=== PATIENT | female | born 1935 | race Caucasian/White ===

== ENCOUNTER → 2019-03-24 | Outpatient (CLI) | payer OTHER, BC ==
[~2019-03-24] MED LIST: ASPIRIN EC81 M1 PO; CALCIUM PO; ELIQUIS2.5 MG PO; FISH OIL 1,0001 EAC5 PO; LEVOTHYROXIN0.125 M1 PO; PLAVIX 75 MG TA75 MG PO; TOPROL XL50 MG PO
== END ==
LOC: HYPER 08:00
DX: L89.623 Pressure ulcer of left heel, stage 3 (principal); S91.111D Laceration without foreign body of right great toe without damage to nail, subsequent encounter; I73.9 Peripheral vascular disease, unspecified; I25.10 Atherosclerotic heart disease of native coronary artery without angina pectoris; I10 Essential (primary) hypertension; I71.4 Abdominal aortic aneurysm, without rupture; E78.00 Pure hypercholesterolemia, unspecified; L84 Corns and callosities; E78.5 Hyperlipidemia, unspecified; F19.10 Other psychoactive substance abuse, uncomplicated; F17.200 Nicotine dependence, unspecified, uncomplicated; Z86.73 Personal history of transient ischemic attack (TIA), and cerebral infarction without residual deficits; X58.XXXD Exposure to other specified factors, subsequent encounter

== ENCOUNTER → 2019-04-04 | Outpatient (CLI) | payer OTHER, BC | LOC: HYPER 01:06 | DX: L89.613 Pressure ulcer of right heel, stage 3 (principal); I73.9 Peripheral vascular disease, unspecified; I25.10 Atherosclerotic heart disease of native coronary artery without angina pectoris; I10 Essential (primary) hypertension; I71.4 Abdominal aortic aneurysm, without rupture; E78.00 Pure hypercholesterolemia, unspecified; L84 Corns and callosities; E78.5 Hyperlipidemia, unspecified; F19.10 Other psychoactive substance abuse, uncomplicated; F17.200 Nicotine dependence, unspecified, uncomplicated; Z86.73 Personal history of transient ischemic attack (TIA), and cerebral infarction without residual deficits ==

== ENCOUNTER → 2019-04-18 | Outpatient (CLI) | payer OTHER, BC | LOC: HYPER 09:46 | DX: L89.613 Pressure ulcer of right heel, stage 3 (principal); I73.9 Peripheral vascular disease, unspecified; I25.10 Atherosclerotic heart disease of native coronary artery without angina pectoris; I10 Essential (primary) hypertension; E78.00 Pure hypercholesterolemia, unspecified; I71.4 Abdominal aortic aneurysm, without rupture; L84 Corns and callosities; E78.5 Hyperlipidemia, unspecified; F19.10 Other psychoactive substance abuse, uncomplicated; F17.200 Nicotine dependence, unspecified, uncomplicated; Z86.73 Personal history of transient ischemic attack (TIA), and cerebral infarction without residual deficits ==

== ENCOUNTER → 2019-05-09 | Outpatient (CLI) | payer OTHER, BC | LOC: HYPER 10:00 | DX: L89.613 Pressure ulcer of right heel, stage 3 (principal); L89.899 Pressure ulcer of other site, unspecified stage; I73.89 Other specified peripheral vascular diseases; L84 Corns and callosities; I25.10 Atherosclerotic heart disease of native coronary artery without angina pectoris; I71.4 Abdominal aortic aneurysm, without rupture; E78.00 Pure hypercholesterolemia, unspecified; E78.5 Hyperlipidemia, unspecified; I10 Essential (primary) hypertension; F17.290 Nicotine dependence, other tobacco product, uncomplicated; Z86.73 Personal history of transient ischemic attack (TIA), and cerebral infarction without residual deficits ==

== ENCOUNTER → 2019-05-16 | Outpatient (CLI) | payer OTHER, BC | LOC: HYPER 08:46 | DX: L89.613 Pressure ulcer of right heel, stage 3 (principal); L89.899 Pressure ulcer of other site, unspecified stage; L84 Corns and callosities; E78.5 Hyperlipidemia, unspecified; E78.00 Pure hypercholesterolemia, unspecified; I10 Essential (primary) hypertension; I25.10 Atherosclerotic heart disease of native coronary artery without angina pectoris; I73.9 Peripheral vascular disease, unspecified; I71.4 Abdominal aortic aneurysm, without rupture; F17.200 Nicotine dependence, unspecified, uncomplicated; Z86.73 Personal history of transient ischemic attack (TIA), and cerebral infarction without residual deficits ==

== ENCOUNTER → 2019-05-30 | Outpatient (CLI) | payer OTHER, BC | LOC: HYPER 08:08 | DX: L89.613 Pressure ulcer of right heel, stage 3 (principal); L89.899 Pressure ulcer of other site, unspecified stage; L84 Corns and callosities; I25.10 Atherosclerotic heart disease of native coronary artery without angina pectoris; I10 Essential (primary) hypertension; I73.9 Peripheral vascular disease, unspecified; I71.4 Abdominal aortic aneurysm, without rupture; E78.5 Hyperlipidemia, unspecified; E78.00 Pure hypercholesterolemia, unspecified; F17.200 Nicotine dependence, unspecified, uncomplicated; Z86.73 Personal history of transient ischemic attack (TIA), and cerebral infarction without residual deficits ==

== ENCOUNTER → 2019-06-13 | Outpatient (CLI) | payer OTHER, BC | LOC: HYPER 09:42 | DX: L89.613 Pressure ulcer of right heel, stage 3 (principal); L97.512 Non-pressure chronic ulcer of other part of right foot with fat layer exposed; I73.89 Other specified peripheral vascular diseases; L84 Corns and callosities; I25.10 Atherosclerotic heart disease of native coronary artery without angina pectoris; I10 Essential (primary) hypertension; I71.4 Abdominal aortic aneurysm, without rupture; E78.00 Pure hypercholesterolemia, unspecified; E78.5 Hyperlipidemia, unspecified; F17.200 Nicotine dependence, unspecified, uncomplicated; Z86.73 Personal history of transient ischemic attack (TIA), and cerebral infarction without residual deficits; Z79.82 Long term (current) use of aspirin; Z79.01 Long term (current) use of anticoagulants ==

== ENCOUNTER → 2019-06-27 | Outpatient (CLI) | payer OTHER, BC | LOC: HYPER 13:49 | DX: L89.613 Pressure ulcer of right heel, stage 3 (principal); L89.899 Pressure ulcer of other site, unspecified stage; L97.512 Non-pressure chronic ulcer of other part of right foot with fat layer exposed; L84 Corns and callosities; I25.10 Atherosclerotic heart disease of native coronary artery without angina pectoris; I10 Essential (primary) hypertension; I71.4 Abdominal aortic aneurysm, without rupture; E78.00 Pure hypercholesterolemia, unspecified; I73.9 Peripheral vascular disease, unspecified; E78.5 Hyperlipidemia, unspecified; F17.290 Nicotine dependence, other tobacco product, uncomplicated; Z86.73 Personal history of transient ischemic attack (TIA), and cerebral infarction without residual deficits; Z79.82 Long term (current) use of aspirin; Z79.01 Long term (current) use of anticoagulants ==

== ENCOUNTER → 2019-07-11 | Outpatient (CLI) | payer OTHER, BC | LOC: HYPER 13:34 | DX: L89.613 Pressure ulcer of right heel, stage 3 (principal); I73.89 Other specified peripheral vascular diseases; I25.10 Atherosclerotic heart disease of native coronary artery without angina pectoris; I10 Essential (primary) hypertension; I71.4 Abdominal aortic aneurysm, without rupture; E78.00 Pure hypercholesterolemia, unspecified; L84 Corns and callosities; E78.5 Hyperlipidemia, unspecified; F17.290 Nicotine dependence, other tobacco product, uncomplicated; Z86.73 Personal history of transient ischemic attack (TIA), and cerebral infarction without residual deficits; Z79.82 Long term (current) use of aspirin ==

== ENCOUNTER → 2019-07-18 | Outpatient (CLI) | payer OTHER, BC | LOC: HYPER 13:47 | DX: L89.613 Pressure ulcer of right heel, stage 3 (principal); L97.512 Non-pressure chronic ulcer of other part of right foot with fat layer exposed; I73.89 Other specified peripheral vascular diseases; L84 Corns and callosities; I25.10 Atherosclerotic heart disease of native coronary artery without angina pectoris; I71.4 Abdominal aortic aneurysm, without rupture; E78.00 Pure hypercholesterolemia, unspecified; E78.5 Hyperlipidemia, unspecified; I10 Essential (primary) hypertension; F17.200 Nicotine dependence, unspecified, uncomplicated; Z79.01 Long term (current) use of anticoagulants; Z79.82 Long term (current) use of aspirin ==

== ENCOUNTER → 2019-08-08 | Outpatient (CLI) | payer OTHER, BC | LOC: HYPER 09:58 | DX: L89.613 Pressure ulcer of right heel, stage 3 (principal); L97.512 Non-pressure chronic ulcer of other part of right foot with fat layer exposed; L84 Corns and callosities; E78.5 Hyperlipidemia, unspecified; E78.00 Pure hypercholesterolemia, unspecified; I73.9 Peripheral vascular disease, unspecified; I25.10 Atherosclerotic heart disease of native coronary artery without angina pectoris; I10 Essential (primary) hypertension; I71.4 Abdominal aortic aneurysm, without rupture; F17.200 Nicotine dependence, unspecified, uncomplicated; Z86.73 Personal history of transient ischemic attack (TIA), and cerebral infarction without residual deficits ==

== ENCOUNTER → 2019-08-28 | Outpatient (CLI) | payer OTHER, BC | LOC: HYPER 13:12 | DX: L89.613 Pressure ulcer of right heel, stage 3 (principal); L89.312 Pressure ulcer of right buttock, stage 2; L97.512 Non-pressure chronic ulcer of other part of right foot with fat layer exposed; I73.9 Peripheral vascular disease, unspecified; F17.200 Nicotine dependence, unspecified, uncomplicated; I25.10 Atherosclerotic heart disease of native coronary artery without angina pectoris; I10 Essential (primary) hypertension; I71.4 Abdominal aortic aneurysm, without rupture; E78.00 Pure hypercholesterolemia, unspecified; L84 Corns and callosities; E78.5 Hyperlipidemia, unspecified; Z86.73 Personal history of transient ischemic attack (TIA), and cerebral infarction without residual deficits; Z79.01 Long term (current) use of anticoagulants; Z79.82 Long term (current) use of aspirin ==

== ENCOUNTER → 2019-09-11 | Outpatient (CLI) | payer OTHER, BC | LOC: HYPER 09:52 | DX: L89.613 Pressure ulcer of right heel, stage 3 (principal); L89.313 Pressure ulcer of right buttock, stage 3; L89.153 Pressure ulcer of sacral region, stage 3; L97.512 Non-pressure chronic ulcer of other part of right foot with fat layer exposed; I73.89 Other specified peripheral vascular diseases; L84 Corns and callosities; R21 Rash and other nonspecific skin eruption; I25.10 Atherosclerotic heart disease of native coronary artery without angina pectoris; I10 Essential (primary) hypertension; I71.4 Abdominal aortic aneurysm, without rupture; E78.00 Pure hypercholesterolemia, unspecified; E78.5 Hyperlipidemia, unspecified; F17.200 Nicotine dependence, unspecified, uncomplicated; Z86.73 Personal history of transient ischemic attack (TIA), and cerebral infarction without residual deficits; Z79.82 Long term (current) use of aspirin ==

== ENCOUNTER → 2019-10-02 | Outpatient (CLI) | payer OTHER, BC | LOC: HYPER 09:32 | DX: L89.613 Pressure ulcer of right heel, stage 3 (principal); L89.153 Pressure ulcer of sacral region, stage 3; L89.312 Pressure ulcer of right buttock, stage 2; L97.412 Non-pressure chronic ulcer of right heel and midfoot with fat layer exposed; L97.512 Non-pressure chronic ulcer of other part of right foot with fat layer exposed; L97.411 Non-pressure chronic ulcer of right heel and midfoot limited to breakdown of skin; S91.312A Laceration without foreign body, left foot, initial encounter; L84 Corns and callosities; E78.00 Pure hypercholesterolemia, unspecified; E78.5 Hyperlipidemia, unspecified; I71.4 Abdominal aortic aneurysm, without rupture; I10 Essential (primary) hypertension; I25.10 Atherosclerotic heart disease of native coronary artery without angina pectoris; I73.9 Peripheral vascular disease, unspecified; F17.200 Nicotine dependence, unspecified, uncomplicated; Z86.73 Personal history of transient ischemic attack (TIA), and cerebral infarction without residual deficits; X58.XXXA Exposure to other specified factors, initial encounter; Y93.89 Activity, other specified; Y92.89 Other specified places as the place of occurrence of the external cause; Y99.8 Other external cause status ==

== ENCOUNTER → 2019-10-03 | Outpatient (CLI) | payer OTHER, BC | LOC: SJCVCIMAG 08:56 | DX: R94.31 Abnormal electrocardiogram [ECG] [EKG] (principal); I70.203 Unspecified atherosclerosis of native arteries of extremities, bilateral legs; S91.302D Unspecified open wound, left foot, subsequent encounter; I25.10 Atherosclerotic heart disease of native coronary artery without angina pectoris; I73.9 Peripheral vascular disease, unspecified; I10 Essential (primary) hypertension; E78.00 Pure hypercholesterolemia, unspecified; I63.9 Cerebral infarction, unspecified; I71.4 Abdominal aortic aneurysm, without rupture; I65.23 Occlusion and stenosis of bilateral carotid arteries; D68.59 Other primary thrombophilia; I77.1 Stricture of artery; F17.200 Nicotine dependence, unspecified, uncomplicated; X58.XXXD Exposure to other specified factors, subsequent encounter ==

== ENCOUNTER 2019-10-12 12:33 | Observation (INO) | payer OTHER, BC ==
[2019-10-12] VITALS (11 sets, daily range): BP systolic 136–161; BP diastolic 28–68
[~2019-10-12] VITALS: Ht 162.6 cm; Wt 63.5 kg
[2019-10-12] MEDS ORDERED: LIVALO2 MG PO (12:42)
[2019-10-12] MEDS ORDERED: DIGOXIN125 MCG PO (12:53)
[2019-10-12] MEDS ORDERED: COZAAR100 MG PO (12:54)
[2019-10-12] MEDS ORDERED: ASA81BEC PO (12:54)
[2019-10-12 13:15] LABS: HEMATOCRIT 37.1 % (37.0-47.0); MCH 33.9 pg (26.0-34.0); MCV 96.9 fL (80.0-100.0); RBC 3.83 mil/uL (4.20-5.00); RDW 16.9 % (10.5-14.5); WBC 8.7 thou/uL (4.0-11.0)
[2019-10-12 13:26] LABS: CREATININE 0.9 mg/dL (0.6-1.0); POTASSIUM 4.2 mmol/L (3.5-5.1)
[2019-10-12 13:27] LABS: PROTIME 10.3 Seconds (9.3-11.4)
--- NOTE | 2019-10-12 19:12 | NUR ---
17:48: PT. ARRIVED POST SAFETY AND SKILL BASED PAY MANAGER PROCEDURE AT THIS TIME. DENIES ANY CP, DENIES ANY SOB. ON ROOM AIR. RIGHT GROIN SITE IT C.D.I. PEDAL PULSES ARE DOPPLER BILATERALLY DUE TO PVD TO WEAK. PT. AFIB, NO ECTOPY. PT. NEEDS THE BEDPAN FREQUENTLY AND VOIDING WITH NO DIFFICULTY. NO PAIN OTHER THEN TO URINATE THUS FAR.
[2019-10-13 00:22] VITALS: BP 146/64
[2019-10-13 03:52] LABS: HEMATOCRIT 38.9 % (37.0-47.0); HEMOGLOBIN 13.1 gm/dL (12.0-15.0); MCH 32.2 pg (26.0-34.0); MCHC 33.7 g/dL (28.0-37.0); MCV 95.5 fL (80.0-100.0); RBC 4.08 mil/uL (4.20-5.00); RDW 16.2 % (10.5-14.5); WBC 8.7 thou/uL (4.0-11.0)
[2019-10-13 04:45] VITALS: BP 171/73
--- NOTE | 2019-10-13 05:25 | NUR ---
ASSUMED PT CARE AT 1900. PT IS ALERT AND ORIENTED WITH FORGETFULNESS. NO SIGN OF DISTRESS NOTED IN PT. PT WAS ON BEDREST FOR SIX HOURS, CARDIAC CATH PERFORMED. RIGHT GROIN SITE IS INTACT. NO SIGN OF BLEEDING OR BRUISING NOTED. BEDREST COMEPLETED AT 2300. PT TOLERATED BEDREST. ASSESSMENT COMPLETED AND DOCUMENTED. FALL PRECAUTION IN PLACE. SCHEDULED MEDS ADMINISTERED TO PT. PT COMPLAINS OF LEG CRAMPS AND KNEE PAIN. CONTINUE TO MONITOR PT. NO FURTHER NEEDS REQUESTED AT THIS TIME.
[2019-10-13 05:48] LABS: CALCIUM 8.6 mg/dL (8.5-10.1); CREATININE 0.8 mg/dL (0.6-1.0)
--- NOTE | 2019-10-13 07:33 | NUR ---
PHYSICIAN: SENT NOTE TO LABORATORY MECHANICAL TECHNICIAN RE: PT'S CODE STATUS, MED REC, HTN AND LEG CRAMPS ALL NIGHT.
[2019-10-13 07:50] VITALS: BP 87/52
--- NOTE | 2019-10-13 08:01 | EKG ---
[facility] [place] [address] ELECTROCARDIOGRAM REPORT Name: LUCHO YOUNG Room #: 214-[facility] M.R.#: [id number] Admission: 10/12/19 Attend Phys: Sony Tinoco MD, Discharge: Date of : 39 Report #: [id number] THIS REPORT FOR: cc: DENISE REDD APRN, ASHLEY APRN Couchonnal,David Kam MD ~ THIS REPORT FOR: //name// [facility] Test Date: 2019-10-13 Test Time: 07:22:55 Pat Name: LUCHO YOUNG Department: Room: 214 Gender: F [employer]: ROXANNA : 1935 Requested By: Ale Villalpando Order Number: [id number] MD: David White Measurements Intervals [place] Rate: 80 P: 48 CA: 192 QRS: -21 QRSD: 103 T: 75 QT: 397 QTc: 458 Interpretive Statements Sinus rhythm Borderline left axis deviation Compared to ECG 08/01/2014 08:48:54 First degree AV block no longer present Left anterior fascicular block no longer present Left ventricular hypertrophy no longer present ST (T wave) deviation no longer present Electronically Signed On 10-13-2019 8:00:29 CDT by David White [email or web address] <ELECTRONICALLY SIGNED> By: David White MD 10/13/19799 1 1 David White MD /EPI
--- NOTE | 2019-10-13 08:32 | NUR ---
ASSUMED CARE OF PT AT SHIFT CHANGE, FORGETFUL A&0X4, YET THEN TALKS NONSENSICAL. HTN NOTED THEN IMMEDIATE DROP; WILL REASSESS B/P NOW. IS NOT IMPULSIVE THUS FAR, CONCERNING NO CODE STATUS PT ASKED TO BE A DNR TO MANAGER CLINICAL; MANAGER CLINICAL WILL ENTER ORDER. STATES SHE DOES NOT HAVE ANY TROUBLE URINATING USUALLY. SEE SEPARATE INTERVENTIONS FOR ASSESSMENTS. WILL CONTINUE TO MONITOR. ODERATE APPETITE. WILL CONTINUE TO MONITOR
[2019-10-13 12:18] VITALS: BP 150/66
--- NOTE | 2019-10-13 13:48 | NUR ---
chart review, cm visit with estefani preferrs going by matthew. intro to cm and dcp ie hh " yes now on it. live with 2 drt and grandson. independent. have walker function. main level of house. no steps have to do. not driving in 3-6 months. shower chair and grab bars both"/matthew. cm noted pt was really short with her answer, cm letting her rest. called pt daughter jimmie and she put cm on [address] phone call with sister paul. intro to cm and dcp. wish know if she staying or coming home, if she needs surgery to help her with out losing limb she needs it. think dr are letting her make the decision. [facility] is who she is on service with and nurse was great. daughter paul sets up medication on pill box. few weeks about she was able to bath independently but know needs little assist rt wounds"/daughter jimmie and paul. referral to be sent to [facility] to resume hh at home.
[2019-10-13 14:32] VITALS: BP 150/66
--- NOTE | 2019-10-13 14:48 | NUR ---
PT ON SERVICE WITH [facility] PRIOR TO ADM FAXED CLINICAL UPDATE RECEIVED CONFIRMATION AND SPOKE WITH DELLA IN INTAKE SHE RECEIVED UPDATE. DP TO FOLLOW.
--- NOTE | 2019-10-13 14:52 | NUR ---
WOUND DISCOVERY: IN BETWEEN BUTTOCKS, VERY SMALL OPENING; PICS TAKEN, WOUND CONSULT RN ENTERED. PLACED MEPILEX FOR COMFORT, PT FREQ REPOSITIONS; ALSO AIDING IN THIS
[2019-10-13] MEDS ORDERED: IMDUR 30 MG TAB30 M1 PO (15:59)
[2019-10-13] MEDS ORDERED: PLAVIX 75 MG TA75 MG PO (15:59)
[2019-10-13 16:33] VITALS: BP 150/66
--- NOTE | 2019-10-13 16:51 | NUR ---
CALLED PT'S DAUGHTER, ARINA, SHE'LL BE HERE AT 1820 AT ED. IVS AND TELE WILL BE REMOVED. PT DELIGHTED TO LEAVE.
--- NOTE | 2019-10-15 09:00 | HC ---
[facility] [place] [address] CONSULTATION Name: LUCHO YOUNG Room #: 214-P [facility] Emily Jacobson#: [id number] Admission: 10/12/19 Attend Phys: Sony Tinoco MD, Discharge: 10/13/19 Date of : 39 Report #: [id number] THIS REPORT FOR: cc: DENISE REDD APRN, Buster Del Cid APRN, MD ~ CC: DENISE Tinoco DATE OF SERVICE: 10/12/2019 We were asked to see the patient by Dr. Roth and Dr. Tinoco. HISTORY OF PRESENT ILLNESS: The patient is an 84-year-old with nonhealing lesions of the left heel, thought to be ischemic. The patient has a long history of peripheral vascular disease with bilateral superficial femoral artery occlusions. The patient also has had some anginal symptoms. Cardiac catheterization was done that shows a right coronary and left anterior descending lesions. Arteriography by Dr. Roth reveals bilateral superficial femoral artery occlusions. The left side has a common femoral occlusion with stenosis extending into the deep femoral artery and the deep femoral only becomes normal quite distally. The popliteal artery below the knee is open, but it is not normal. The only runoff is through a peroneal artery, which does not extend into the foot. PAST MEDICAL HISTORY: Significant for paroxysmal atrial fibrillation, coronary artery disease, peripheral vascular disease, right knee surgery, remote seizure disorder, migraine, coronary stents, degenerative joint disease and chronic obstructive pulmonary disease. FAMILY HISTORY: Positive for premature coronary artery disease. REVIEW OF SYSTEMS: GENERAL: The patient has been in her usual health. Denies recent changes with fatigue or fever. EYES: No new vision changes. HENT: No headache, no vertigo, no new hearing problems. RESPIRATORY: No new shortness of breath. CARDIAC: As mentioned, some angina. SKIN: Nonhealing lesion, left foot. ENDOCRINE: No goiter, no tremor. GASTROINTESTINAL: No nausea, vomiting, diarrhea. GENITOURINARY: No urgency, frequency, blood. [facility] [address] [place] [address] CONSULTATION Name: LUCHO YOUNG Room #: 214-P [facility] Emily Jacobson#: [id number] Admission: 10/12/19 Attend Phys: Sony Tinoco MD, Discharge: 10/13/19 Date of : 39 Report #: [id number] NEUROLOGIC: No motor or sensory dysfunction. PSYCHIATRIC: No hallucination, depression, anxiety. MUSCULOSKELETAL: No new bone or joint stiffness. IMMUNOLOGIC: No lupoid rash. PHYSICAL EXAMINATION: CONSTITUTIONAL: The patient is lying in bed, post-catheterization. VITAL SIGNS: Temperature 36.6, pulse 81, blood pressure 148/63, O2 sat 98 on room air. HEENT: No scleral icterus, no arcus. NECK: No mass. 1+ carotid bruits. CHEST: 1+ aortic systolic murmur. ABDOMEN: Soft. EXTREMITIES: No clubbing, cyanosis. Trace edema, nonhealing lesion noticed left foot, VASCULAR: Right groin was catheterized and left femoral pulses 1 to 2+. No popliteal, dorsalis pedis or posterior pulses are palpable. IMPRESSION: The patient has bilateral superficial femoral artery occlusion with left being worse because of the deep femoral occlusion. Femoral to peroneal artery bypass is possible, but it is a relatively low yield operation in a relatively high risk patient. I am happy to discuss the risks and details of surgery with the patient and the doctors. At this point, the patient wishes to reflect and I would certainly be sure that all wound healing options were exhausted before surgery was attempted. Thank you for the consult. <ELECTRONICALLY SIGNED> By: Buster Perdue MD 10/15/19 0900 1027 1112 Buster Perdue MD /nt
--- NOTE | 2019-10-17 10:21 | H ---
[facility] [place] [address] HISTORY AND PHYSICAL Name: LUCHO YOUNG Room #: 214-P [facility] Emily Jacobson#: [id number] Admission: 10/12/19 Attend Phys: Sony Tinoco MD, Discharge: 10/13/19 Date of : 39 Report #: [id number] THIS REPORT FOR: cc: DENISE REDD APRN, ASHLEY APRN Mancuso, Gerald M. MD [facility] ~ CC: DENISE Carlson DATE OF SERVICE: 10/12/2019 HISTORY OF PRESENT ILLNESS: The patient is an 84-year-old female well known to myself. Seen by my partner, Dr. Yo of wound care today. Having some progressive changes in her left foot consistent with ischemia. Also, being evaluated by Dr. Roth of Interventional Radiology. He has a history of significant peripheral vascular disease with bilateral SFA occlusions, not amenable to Dr. Roth. Having some question of anginal type symptoms. I subsequently also evaluated her coronary anatomy, complex and calcified. Large dominant right coronary artery with at least an eccentric 70-75% lesion. The mid LAD also has a 70% and then high-grade distal disease. Circumflex 30-40%. No unstable anginal symptoms. She has been compliant with medications. There is a history of long prior tobacco use. I do not have a recent stress test. The pressing issue is the ischemic changes involving the left foot. CURRENT MEDICATIONS: Levothyroxine, metoprolol 50, calcium, Eliquis 5 mg b.i.d., last dose this morning when she was urgently brought to the catheterization lab. Digoxin 0.125, baby aspirin and losartan 100. ALLERGIES: CODEINE, RELAFEN and SULFA. SOCIAL HISTORY: ____. She is . Has multiple daughters. No alcohol use. She quit, a long history of tobacco recently. PAST MEDICAL HISTORY: Positive for the paroxysmal AFib, coronary artery disease, peripheral vascular disease, right knee surgery, remote seizure disorder in the 80s, migraine. Coronary stent years ago, DJD, COPD. REVIEW OF SYSTEMS: Essentially negative. FAMILY HISTORY: Positive for premature coronary artery disease. PHYSICAL EXAMINATION: VITAL SIGNS: Blood pressure ____, pulse 70. HEENT: Eyes reveal xanthelasmas. Pharynx is clear. NECK: Shows preserved upstrokes without JVD or bruits. LUNGS: Prolonged expiratory phase. [facility] [address] [place] [address] HISTORY AND PHYSICAL Name: LUCHO YOUNG Room #: 214-P [facility] Emily Jacobson#: [id number] Admission: 10/12/19 Attend Phys: Sony Tinoco MD, Discharge: 10/13/19 Date of : 39 Report #: [id number] CARDIOVASCULAR: Regular rate and rhythm, S1, S2 distant. There is a systolic ejection murmur. ABDOMEN: Soft. No HSM or abdominal bruit. EXTREMITIES: There are femoral pulses, but slightly diminished femoral bruits are noted. I cannot palpate distal pulses. The left foot has some ischemic changes, some rubor and some lesion in the left heel partially nonhealing. MUSCULOSKELETAL: Generalized arthritic changes. SKIN: Warm and dry with the exception of that left foot, left heel lesion. ASSESSMENT: 1. Peripheral vascular disease with certainly threatened left lower extremity could be amenable with fem distal bypass, needs evaluation by Dr. Perdue of Vascular Surgery. 2. Coronary artery disease, complex calcified with proximal RCA lesions of 70-75%, mid LAD 70-75% calcified. We will follow and attempt to treat this medically. Could evaluate the extent of ischemia with nuclear stress testing, although I am not sure that we have the luxury to wait on bypass. 3. Hypertension. 4. Hypercholesterolemia. 5. Intolerant of statins. 6. Longstanding tobacco use, currently stopped. Chronic obstructive pulmonary disease. 7. Degenerative joint disease. RECOMMENDATIONS AND PLAN: As described above, we will add long-acting nitrate, continue with the beta jeana, observation tonight, restart anticoagulation, ____ on timing of surgery. She is pain free and hemodynamically stable. We will discuss the above with Dr. Roth and Dr. Perdue. This is certainly complex decision process here. Coronary interventions have to be concerned about the significant calcification. These are moderately severe lesions and not surely would need to be intervened on prior to bypass. One could evaluate the extent of ischemia with nuclear stress testing. Further recommendations to follow. Observation overnight, fluids, nitrates. <ELECTRONICALLY SIGNED> By: Sony Tinoco MD, FACC 10/17/19 1021 1641 1700 Sony Tinoco MD, FACC /nt
--- NOTE | 2019-10-20 08:57 | CATHLAB ---
[facility] [place] [address] INVASIVE PROCEDURE REPORT Name: LUCHO YOUNG Room #: 214-P [facility] Emily Jacobson#: [id number] Admission: 10/12/19 Attend Phys: Sony Tinoco MD, Discharge: 10/13/19 Date of : 39 Report #: [id number] THIS REPORT FOR: cc: DENISE REDD APRN, ASHLEY APRN Mancuso, Gerald M. MD [facility] ~ APPROVED REPORT Study performed: 10/12/2019 15:43:50 Patient Details Patient Status: Out-Patient Room #: The patient is a 84 year-old female Event Personnel Sony Tinoco Society Reporter, Joe Coleman RN, Jonah Phan RTR Ly Cantu Ja'net RTR Monitor Procedures Performed Left Heart Cath w/or w/o Coronaries [id number] [facility] Art Access - R femoral artery* 56613 Initial Mod Sed Same Phys/QHP Gr5y [id number] 63791 Mod Sed Same Phys/QHP Ea 016445 Hemostasis with Manual pressure Indication Pre-op clearance Procedure Narrative The patient was brought electively to the Cardiac Catheterization Laboratory and was prepped and draped in a sterile manner. A PINNACLE 6FR Sheath #[id number] sheath was inserted into the RFA^. Coronary angiography was performed using coronary diagnostic catheters. The right coronary system was accessed and visualized with a JR4 catheter. The left coronary system was accessed and visualized with a JL4 catheter. The left ventricle was accessed and visualized with a PIGTAIL catheter. Hemostasis was obtained with manual pressure following sheath removal without any complications. The patient tolerated the procedure well and there were no complications associated with the procedure. There was no hematoma. This was a combo case with Dr Roth. The patiuent was also given 102ml of Visiopaque contrast for the Lower extremity run-off. Intraoperative Conscious Sedation Sedation start time: 15:58 Case end Time: [facility] [place] [place] [address] INVASIVE PROCEDURE REPORT Name: LUCHO YOUNG Room #: 214-P [facility]#: [id number] Admission: 10/12/19 Attend Phys: Sony Tinoco, Discharge: 10/13/19 Date of : 39 Report #: [id number] 16:55 Fentanyl 150 mcg Versed 2 mg Sedation amounts and Flouro totals are for the combo case. Fluoro Time: 2.49 minutes Dose: DAP 39553.30 cGycm2 695.20 mGy Contrast Type and Amount: Omnipaque 130 ml Hemodynamics The aortic pressure is 168/59 mmHg with a mean of mmHg. The left ventricular pressure is 148/8 mmHg with a mean of mmHg. The left ventricular end diastolic pressure is 20 mmHg. Conclusion 1. Normal left ventricular size and systolic function EF 60% #2 distal left main at 40 to 50% giving rise to LAD and circumflex moderate calcification #3 the LAD is moderately diseased and calcified heavily this extends to the apex diffuse distal disease continue to treat medically eccentric proximal 60 to 70% lesion after the first diagonal which is moderately diseased #4 circumflex OM moderate proximal disease no high-grade occlusive disease proximal calcification #4 dominant right coronary artery also heavily calcified eccentric lesion of 70 to 80% proximal mid lesion of 60 to 70% preserved distal PDA DORIAN which are large in distribution Recommendations plan continue aggressive risk factor modification. Will obtain nuclear testing to evaluate the extent of ischemia in the LAD and RCA distributions. We will use this to guide intervention. Consideration for peripheral bypass surgery certainly would be high risk would favor conservative measures. <ELECTRONICALLY SIGNED> By: Sony Tinoco MD, FACC 10/20/19 0856 5 Sony Tinoco MD, FACC /INF
--- NOTE | 2019-10-25 08:07 | HC ---
[facility] [place] [address] CONSULTATION Name: LUCHO YOUNG Room #: 214-P [facility] Emily Jacobson#: [id number] Admission: 10/12/19 Attend Phys: Sony Tinoco MD, Discharge: 10/13/19 Date of : 39 Report #: [id number] THIS REPORT FOR: cc: DENISE REDD APRN, Omkar Schafer APRN, MD ~ CC: DENISE Tinoco DATE OF SERVICE: 10/13/2019 WOUND CARE CONSULTATION PERSONAL PHYSICIAN: Dr. Tinoco. CHIEF COMPLAINT: Left heel ulcer. HISTORY OF PRESENT ILLNESS: This is an 84-year-old white female with longstanding history of peripheral arterial disease, who came to my clinic as a walk-in yesterday for progressive pain and irritation to a new wound on her left heel. I had actually seen the wound approximately a week ago, which appeared to be a small blister of unknown etiology. At that time, the patient was instructed to place silver foam over the ulceration. The patient states she followed up with Dr. Roth the following day. Ultrasound showed that all her stents were still patent and there were no signs of any acute pathology; however, in the past 2 days, she has had increased amount of pain, some swelling and increased drainage from her left heel. The patient had called my office and asked for an appointment to be seen that day and the patient was evaluated by myself and felt that the foot was slightly cool in temperature. The ulcer on her left heel has gotten much worse with eschar and the patient was then admitted to the hospital for IV antibiotics as well as an emergent angiogram, which showed no amenable percutaneous options for Dr. Roth to work with. Vascular Surgery has been consulted about a possible arterial bypass. The patient was also started on IV antibiotics. The patient states her heel actually feels somewhat better today. The patient denies any other associated new wounds. PAST MEDICAL HISTORY: Significant for peripheral arterial disease, recurrent ulcerations on bilateral heels, coronary artery disease, hypertension, hyperlipidemia. CURRENT MEDICATIONS: Multiple and I reviewed the patient's medication list. DRUG ALLERGIES: RELAFEN, CODEINE AND SULFA. SOCIAL HISTORY: The patient has a longstanding history of smoking, even [address] [address] CONSULTATION Name: LUCHO YOUNG Room #: 214-P [facility] Emily Jacobson#: [id number] Admission: 10/12/19 Attend Phys: oSny Tinoco MD, Discharge: 10/13/19 Date of : 39 Report #: [id number] persistently despite the fact that she has no known peripheral arterial disease. FAMILY HISTORY: Not pertinent to current medical condition. REVIEW OF SYSTEMS: CONSTITUTIONAL: The patient denies fevers or chills. NEUROLOGIC: The patient has overall generalized weakness, but no isolated weakness in arms or legs. EYES: No complaints. ENT: No complaints. CARDIAC: The patient denies chest pain or palpitations. Does have some mild peripheral edema in the left lower extremity. RESPIRATORY: The patient denies shortness of breath, cough or wheezes. GASTROINTESTINAL: The patient denies nausea, vomiting, abdominal pain. GENITOURINARY: The patient denies urgency or frequency. MUSCULOSKELETAL: No complaints. SKIN: The patient has a new ulcer on the left heel, etiology unknown. PHYSICAL EXAMINATION: VITAL SIGNS: Temperature 37, pulse 87, respiratory rate 18, BP 87/52. GENERAL: This is an alert and oriented x 3, thin white female who is in mild distress secondary to pain. HEENT: Normocephalic, atraumatic. Mucous membranes are moist. Pupils are round. Sclerae are white. LUNGS: Clear. HEART: Regular. ABDOMEN: Soft, nontender. EXTREMITIES: The patient moves all extremities without difficulty. Evaluation of left lower extremity reveals a dry and intact eschar on the posterior aspect of the left heel. There are no signs of any obvious drainage. This is much improved from yesterday. There is slight wound plus swelling around the area of the heel ulcer. It is somewhat tender with mild warmth. No signs of any new ulceration noted on the left foot or toes. There is a faint dorsalis pedis pulse. NEUROLOGIC: Cranial nerves 2-12 grossly intact. Motor and sensory are grossly intact. LABORATORY VALUES: White count 8.7, hemoglobin 13.1, BUN 19, creatinine 0.8. IMPRESSION: 1. New left heel ulcer with surrounding cellulitis, most likely secondary to peripheral arterial disease. 2. Peripheral arterial disease -- severe 3. Hypertension. 4. Coronary artery disease. 5. History of tobacco use. [address] [address] CONSULTATION Name: LUCHO YOUNG Room #: 214-P [facility] Jacobson#: [id number] Admission: 10/12/19 Attend Phys: Sony Tinoco MD, Discharge: 10/13/19 Date of : 39 Report #: [id number] PLAN: At this time, we will use Betadine to the left heel with heel protection on at all times. Vascular Surgery evaluated the patient for possible femoral distal bypass. We will continue with IV antibiotics at this time, IV vancomycin. We will continue all other current medications. I appreciated the ability to consult. We will continue to follow the patient. <ELECTRONICALLY SIGNED> By: Omkar Yo MD 10/25/19 0807 1256 1458 Omkar Yo MD /nt
== END 2019-10-13 18:10 | disposition home or self-care (01) ==
LOC: ER 12:33 → 2N 18:00 → EROBS 18:00 → 2N 18:01
PROVIDERS: Nurse Practitioner; ADMIT Internal Medicine Cardiovascular Disease; ATTEND Internal Medicine Cardiovascular Disease
DX: I70.212 Atherosclerosis of native arteries of extremities with intermittent claudication, left leg (principal); I25.10 Atherosclerotic heart disease of native coronary artery without angina pectoris; I10 Essential (primary) hypertension; E78.5 Hyperlipidemia, unspecified; F17.210 Nicotine dependence, cigarettes, uncomplicated; I65.29 Occlusion and stenosis of unspecified carotid artery; I48.0 Paroxysmal atrial fibrillation; G43.909 Migraine, unspecified, not intractable, without status migrainosus; J44.9 Chronic obstructive pulmonary disease, unspecified; E78.00 Pure hypercholesterolemia, unspecified; L97.529 Non-pressure chronic ulcer of other part of left foot with unspecified severity
CPT/HCPCS: 10797

== ENCOUNTER → 2019-10-16 | Outpatient (CLI) | payer OTHER, BC ==
[~2019-10-16] MED LIST changes: +ASA81BEC PO; +COZAAR100 MG PO; +DIGOXIN125 MCG PO; +IMDUR 30 MG TAB30 M1 PO; +LIVALO2 MG PO
== END ==
LOC: HYPER 11:35
PROVIDERS: ATTEND Emergency Medicine
DX: L89.613 Pressure ulcer of right heel, stage 3 (principal); S91.312D Laceration without foreign body, left foot, subsequent encounter; L89.312 Pressure ulcer of right buttock, stage 2; L97.512 Non-pressure chronic ulcer of other part of right foot with fat layer exposed; L84 Corns and callosities; R60.0 Localized edema; E78.5 Hyperlipidemia, unspecified; E78.00 Pure hypercholesterolemia, unspecified; I25.10 Atherosclerotic heart disease of native coronary artery without angina pectoris; I10 Essential (primary) hypertension; I73.9 Peripheral vascular disease, unspecified; I71.4 Abdominal aortic aneurysm, without rupture; F17.200 Nicotine dependence, unspecified, uncomplicated; Z86.73 Personal history of transient ischemic attack (TIA), and cerebral infarction without residual deficits; X58.XXXD Exposure to other specified factors, subsequent encounter